=== PATIENT | male | born 1995 | race Caucasian/White ===

== ENCOUNTER 2020-05-24 06:03 | Emergency (ER) | payer BC ==
[~2020-05-24] VITALS: Ht 170.2 cm; Wt 90.8 kg
[2020-05-24 06:25] VITALS: Ht 170.2 cm; Wt 90.8 kg
[2020-05-24 08:58] VITALS: BP 122/78
== END 2020-05-24 08:58 | disposition home or self-care (01) ==
LOC: ED 06:03
DX: T74.21XA Adult sexual abuse, confirmed, initial encounter (principal); K62.89 Other specified diseases of anus and rectum; F17.210 Nicotine dependence, cigarettes, uncomplicated